=== PATIENT | female | born 1965 | race Caucasian/White ===

== ENCOUNTER 2017-03-07 18:22 | Emergency (ER) | payer OTHER | END 2017-03-07 19:55 | disposition home or self-care (01) | LOC: ER 18:22 | DX: K21.9 Gastro-esophageal reflux disease without esophagitis (principal); F31.9 Bipolar disorder, unspecified; I10 Essential (primary) hypertension; Z79.899 Other long term (current) drug therapy | CPT/HCPCS: 36415 ==